=== PATIENT | male | born 1970 | race American Indian/Alaskan Native ===

== ENCOUNTER 2021-05-11 09:48 | Outpatient (CLI) | payer SELFPAY | END 2021-05-11 09:49 | disposition home or self-care (01) | LOC: LABHHL 09:48 | PROVIDERS: ATTEND Otolaryngology Otology & Neurotology | DX: J32.2 Chronic ethmoidal sinusitis (principal); J32.0 Chronic maxillary sinusitis; J34.2 Deviated nasal septum | CPT/HCPCS: 88305; 88311 ==